=== PATIENT | male | born 2000 ===

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

== ENCOUNTER 2021-03-22 14:13 | Emergency (ER) | payer MEDICAID, SELFPAY ==
[2021-03-22 14:36] VITALS: BP 116/73; PULSE 81; RESP 18; TEMP 36.6; O2SAT 98; BMI 35.4
[2021-03-22 14:59] LABS: Glucose Urine UA NEG (NEG); Leukocyte Esterase Urine NEG (NEG); Nitrite Urine NEG (NEG); Specific Gravity - Urine >= 1.030 (1.005-1.025); Urine Blood NEG (NEG); Urine Ketones NEG (NEG); Urine Protein NEG (NEG-TRACE)
[2021-03-22 15:04] LABS: Appearance Urine CLEAR; Color Urine YELLOW
--- NOTE | 2021-03-22 15:52 | ED.BACK ---
HPI - Back Pain/Injury General Chief Complaint: Back Pain/Injury Stated Complaint: LOWER SIDE BACK PAIN Time Seen by Provider: 03/22/21 15:29 Source: patient Mode of arrival: ambulatory Limitations: no limitations History of Present Illness HPI Narrative: 20 y/o male with no significant medical history presents to the ER with 2 days of intermittent right lower back pain. The pain comes and goes and at times wraps to his right flank and upper hip. Worse with movement. Currently has no pain. He denies urinary symptoms, fever, chills, N/V/D. 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 Pain started when he was at work. No weakness, numbness, tingling, incontinence or difficulty ambulating. MD elicited complaint: back pain Onset (ago): day(s) (2) Timing: intermittent Similar Symptoms Previously: No Quality: aching Location: right lower back Radiation: other (right upper hip) Exacerbating factors: movement Relieving factors: none Context: unknown Associated symptoms: denies other symptoms Related Data Previous Rx's Medication Instructions Recorded cyclobenzaprine 10 mg PO TID PRN #8 tab 03/22/21 ibuprofen 800 mg PO Q8H PRN #20 tab 03/22/21 Allergies Allergy/AdvReac Type Severity Reaction Status Date / Time No Known Allergies Allergy Verified 03/22/21 14:35 Review of Systems Review of Systems: Constitutional: No Fever, No Chills Cardiovascular: No Chest Pain, No SOB Respiratory: No Cough, No Sputum Gastrointestinal: No Nausea, No Vomiting, No Diarrhea, No abdominal Pain Genitourinary: No Dysuria, No Urinary Frequency, No Hematuria Musculoskeletal: No joint pain, + Myalgias Skin: No Skin Lesions, No rash Neuro: No Weakness, No Numbness, No Dizziness, No Headache Heme/Lymph: No Bruising, No Lymphadenopathy Endocrine: No Polyuria, No Polydipsia PMFSH Social History Social History Advance Directives: No Advance Directives Information Provided: No Physical Exam Vital Signs: Vital Signs: Last Vital Signs Temp 97.9 F 03/22/21 14:36 Pulse 81 03/22/21 14:36 Resp 18 03/22/21 14:36 BP 116/73 03/22/21 14:36 Pulse Ox 98 03/22/21 14:36 Body Mass Index 35.4 Appearance: Alert. Oriented X3. No acute distress. Eyes: Pupils equal, round and reactive to light. ENT: Normal external inspection Neck: Normal inspection. Neck supple. CVS: Normal heart rate and rhythm. Pulses normal. Respiratory: No respiratory distress. Breath sounds normal. Abdomen: Soft and nontender. +BS x4. No CVA tenderness. Back: mild mid lumber tenderness on the right side. full spinal ROM with no discomfort. Skin: Skin warm and dry. Normal skin color. Normal skin turgor. No rashes. Extremities: No lower extremity edema. Atraumatic. Neuro: Oriented X 3. No motor deficit. No sensory deficit. Steady gait. Course Course Course Narrative: 20 y/o male presenting with intermittent right lower back pain. No urinary symptoms. No red flag symptoms of LBP. He is currently pain free. Suspect his main is MSK in nature given the nature of his occupation and being on his feet for so long. Doubt kidney stones given his clinical presentation and physical examination. Will treat with PRN NSAIDS, muscle relaxer and lidocerm. Patient is stable for d/c and agreeable with plan. MDM - Back Pain/Injury Lab Data Labs: Lab Results 03/22/21 Range/Units 14:47 Urine Color YELLOW Urine Appearance CLEAR Urine pH 6.0 (5.0-8.0) Ur Specific [place] >= 1.030 H (1.005-1.025) Urine Protein NEG (NEG-TRACE) MG/DL Urine Glucose (UA) NEG (NEG) MG/DL Urine Ketones NEG (NEG) MG/DL Urine Blood NEG (NEG) Urine Nitrite NEG (NEG) Ur Leukocyte Esterase NEG (NEG) Discharge Plan Discharge Clinical Impression: Strain of lumbar region Qualifiers: Encounter type: initial encounter Qualified Code(s): S39.012A - Strain of muscle, fascia and tendon of lower back, initial encounter Patient Disposition: Home, Self-Care Instructions: Low Back Strain (ED) Additional Instructions: Your urine test was normal. Your pain is likely muscular in nature. No bending, lifting or twisting. Use ice several times per day for 20 minutes at a time for the next 48 hours and then change to heat. Take medications as prescribed to help with pain and discomfort. Follow up with your Primary Care Doctor this week. If your pain worsens, if you develop new numbness, tingling, weakness, or urinary symptoms come back to the ER right away for evaluation. Prescriptions: New cyclobenzaprine 10 mg tablet 10 mg PO TID PRN (Reason: muscle spasm) Qty: 8 RF: 0 ibuprofen 800 mg tablet 800 mg PO Q8H PRN (Reason: pain) Qty: 20 RF: 0 Stand Alone Forms: Work/School Release
== END 2021-03-22 16:05 | disposition home or self-care (01) ==
PROVIDERS: Emergency Provider Emergency Medicine; PCP Pediatrics
DX: S39.012A Strain of muscle, fascia and tendon of lower back, initial encounter (principal); X50.1XXA Overexertion from prolonged static or awkward postures, initial encounter; Y93.9 Activity, unspecified; Y92.9 Unspecified place or not applicable; Y99.9 Unspecified external cause status
CPT/HCPCS: 81003; 99283

== ENCOUNTER 2021-08-09 16:02 | Emergency (ER) | payer MEDICAID, SELFPAY ==
--- NOTE | ~2021-08-09 | XR_ITS ---
EXAMINATION: XR HAND, LEFT CLINICAL INFORMATION: Finger pain COMPARISON: None TECHNIQUE: PA, lateral, and oblique views of the left hand. FINDINGS: The bones and soft tissues are normal. No fracture. Alignment is anatomic. Joint spaces are maintained. No erosions or soft tissue calcifications. XR/XR hand LT 2V IMPRESSION: Normal left hand.
[2021-08-09 17:14] VITALS: BP 142/76; PULSE 74; RESP 18; TEMP 36.9; O2SAT 99; BMI 34.4
--- NOTE | 2021-08-09 18:37 | ED_ITS ---
HPI - Extremity Problem General Chief complaint: Extremity Injury, Upper Stated complaint: hand inj Time Seen by Provider: 08/09/21 18:37 Source: patient Mode of arrival: ambulatory Limitations: no limitations History of Present Illness HPI Narrative: This is a 20-year-old male who presents to the emergency department with left pinky pain X2 days. He states yesterday he was playing basketball, when he jammed his finger against a ball. He states he immediately started getting pain. He wanted to come in today to see if he had abrupt finger. He states he has pain to his finger that was worse with movement better at rest. He also states he noted a bruise on the Avelar aspect of his hand that has been worsening since yesterday. He does not quantify severity of pain, however he states it is not too bad. He denies paresthesias, numbness, tingling, chest pain, shortness of breath. MD Complaint: extremity pain Onset (ago): day(s) (2) Pain Consistency: constant Location: left Severity scale (1-10): 5 Quality: constant Relieving factors: nothing Associated symptoms: denies other symptoms Related Data Previous Rx's Medication Instructions Recorded cyclobenzaprine 10 mg tablet 10 mg PO TID PRN #8 tab 03/22/21 ibuprofen 800 mg tablet 800 mg PO Q8H PRN #20 tab 03/22/21 acetaminophen 500 mg tablet 500 mg PO Q6H PRN #14 tab 08/09/21 (Tylenol Extra Strength) Allergies Allergy/AdvReac Type Severity Reaction Status Date / Time No Known Allergies Allergy Verified 03/22/21 14:35 Review of Systems Review of Systems: Constitutional : No Weight loss, No Fever, No Chills, No Night Sweats, No Fatigue, No Malaise ENT/Mouth : No Hearing loss, No Ear Pain, No Nasal Congestion, No Sinus Pain, No Hoarseness, No sore throat, No Rhinorrhea, No Swallowing Difficulty Eyes: No Eye Pain, No Swelling, No Redness, No Foreign Body, No Discharge, No Vision Changes Cardiovascular : No Chest Pain, No SOB, No Dyspnea on Exertion, No Orthopnea, No Edema, No Palpitations Respiratory : No Cough, No Sputum, No Wheezing, No Smoke Exposure, No Dyspnea Gastrointestinal : No Nausea, No Vomiting, No Diarrhea, No Constipation, No abdominal Pain, No Hematochezia, No Melena Genitourinary : no irregular bleeding, No Dysuria, No Urinary Frequency, No Hematuria, No Urinary Incontinence, No Urgency, No Flank Pain, No Urinary Flow Changes, No Hesitancy Musculoskeletal : + joint pain ( left sided pinky), No Myalgias, No Joint Swelling Skin : No Skin Lesions, No rash Neuro : No Weakness, No Numbness, No Paresthesias, No Loss of Consciousness, No Dizziness, No Headache Psych : No Anxiety/Panic, No Depression, No SI/HI/AH/VH, No Social Issues, Heme/Lymph: No Bruising, No Bleeding,No Lymphadenopathy Endocrine : No Polyuria, No Polydipsia, No Temperature Intolerance Yes all other systems are reviewed and are negative [facility] Past Medical History Attestation statement: The following information was validated with the patient. Medical History No known health problems Physical Exam Vital Signs: Vital Signs: Last Vital Signs Temp 98.4 F 08/09/21 17:14 Pulse 74 08/09/21 17:14 Resp 18 08/09/21 17:14 BP 142/76 H 08/09/21 17:14 Pulse Ox 99 08/09/21 17:14 Body Mass Index 34.4 vital signs have been reviewed as normal and appeared to be correct. Blood pressure normal. Heart rate normal. Respiration rate normal. Temperature normal. Oxygen saturation normal. Appearance: Alert. Oriented X3. No acute distress. Head: Normal external exam. Normocephalic. Eyes: PERRLA. EOMI. Conjunctiva and sclera normal. Eyelids normal. ENT: Pharynx normal. Uvula midline. Moist mucous membranes. Neck: Normal inspection. Neck supple. FROM. No adenopathy. No meningeal signs. CVS: Normal heart rate and rhythm. Heart sound normal. No murmurs noted. Pulses normal throughout. Respiratory: No respiratory distress. Painless inspiration. Breath sounds normal. No wheezes/rales/rhonchi noted. Chest nontender. No accessory muscle usage noted or decreased air movement noted. Back: Full range of motion noted. Skin: Skin warm and dry. Normal skin color. Normal skin turgor. No rashes/lesions/lacerations noted. Extremities: + tenderness to left lateral and medial aspect of pinky + full/p ainful range of motion to left pinky, no evident tendinous or ligamentous injuries, + good combat information center officer bilaterally no weakness , + eccymosis on the palmar aspect the left hand, no evidence of infections overlying the skin of left pinky. Neuro: Oriented X 3. No motor deficit. No sensory deficit. Reflexes normal. Normal steady gait. Course Course Course Narrative: This is a 20-year-old male who presents to the emergency department with right pinky pain x2 day has been worsening. He states yesterday at basketball practice, he jammed his finger into a ball. He states he immediately started having pain to his finger, specially with movement. Not moving his finger makes it better.e denies paresthesias, numbness, tingling, chest pain, shortness of breath. Upon physical examination he is having tenderness to palpation of the entire left pinky. He has full/painful range of motion. There is also Avelar ecchymosis noted. No evident tendon, or ligament involvement. No tenderness over the anatomical snuffbox. Good pulses 2+ and capilary refill to bilateral upper extremities Plan is to discharge the patient home with a finger splint to the left fifth digit, he should follow up with his PC in two days.. He should return to the emergency department with new or worsening symptoms. Reevaluation(s) Reevaluation #1: X-ray of the left hand shows now fractures. MDM - Extremity (Nontraumatic) Lab Data Attestation: I reviewed the patient's lab results. Imaging Data Left hand: Attestation: I personally reviewed and interpreted this imaging study as follows: Radiologist's impression: FINDINGS: The bones and soft tissues are normal. No fracture. Alignment is anatomic. Joint spaces are maintained. No erosions or soft tissue calcifications.? XR/XR hand LT 2V IMPRESSION: Normal left hand. Discharge Plan Discharge Clinical Impression: Finger sprain, Jammed finger (interphalangeal joint) Patient Disposition: Home, Self-Care Instructions: Jammed Finger (ED), Finger Sprain (ED) Additional Instructions: Follow-up with your PCP in 2 days Take Tylenol for pain as needed Avoid playing basketball for a few days. Wear finger splint as instructed Return to the emergency department with new or worsening symptoms. Prescriptions: New acetaminophen [Tylenol Extra Strength] 500 mg tablet 500 mg PO Q6H PRN (Reason: pain) Qty: 14 RF: 0 No Action cyclobenzaprine 10 mg tablet 10 mg PO TID PRN (Reason: muscle spasm) Qty: 8 RF: 0 ibuprofen 800 mg tablet 800 mg PO Q8H PRN (Reason: pain) Qty: 20 RF: 0 Referrals: Joy Dwyer MD [Primary Care Provider] - 2 days Stand Alone Forms: Work/School Release Print Language: Ukrainian
[2021-08-09] MEDS: Acetaminophen 325 MG TABLET 650 MG PO (19:14)
== END 2021-08-09 19:37 | disposition home or self-care (01) ==
LOC: HO.ED 19:01
PROVIDERS: Emergency Provider Emergency Medicine Emergency Medical Services; PCP Pediatrics
DX: S63.636A Sprain of interphalangeal joint of right little finger, initial encounter (principal); M79.641 Pain in right hand; Y29.XXXA Contact with blunt object, undetermined intent, initial encounter; Y93.9 Activity, unspecified; Y92.9 Unspecified place or not applicable; Y99.9 Unspecified external cause status
CPT/HCPCS: 29130; 73120; 99283; 99284

== ENCOUNTER 2022-09-11 16:34 | Emergency (ER) | payer MEDICAID, SELFPAY ==
--- NOTE | ~2022-09-11 | XR_ITS ---
EXAMINATION: XR HAND, RIGHT CLINICAL INFORMATION: Injury to thumb about one week ago COMPARISON: None TECHNIQUE: PA, lateral, and oblique views of the right hand. FINDINGS: The bones and soft tissues are normal. No fracture. Alignment is anatomic. Joint spaces are maintained. No erosions or soft tissue calcifications. XR/XR hand RT 2V IMPRESSION: Normal right hand.
[2022-09-11 17:02] VITALS: BP 110/67; PULSE 80; RESP 16; O2SAT 98; BMI 33.6
--- NOTE | 2022-09-11 17:49 | ED.EXTPRO ---
HPI - Extremity Problem General Chief complaint: Extremity Injury, Upper <Angelica Willis HUMPHREY Huerta - Last Filed: 09/11/22 18:44> Stated complaint: right hand thumb swollen and painful <Angelica Willis HUMPHREY Huerta - Last Filed: 09/11/22 18:44> Time Seen by Provider: 09/11/22 17:44 <Angelica Huerta CNP - Last Filed: 09/11/22 18:44> Source: patient <Angelica Willis HUMPHREY Huerta - Last Filed: 09/11/22 18:44> Mode of arrival: ambulatory <Angelica Willis HUMPHREY Huerta - Last Filed: 09/11/22 18:44> Limitations: no limitations <Angelica Willis HUMPHREY Huerta - Last Filed: 09/11/22 18:44> History of Present Illness HPI Narrative: Patient is a 21-year-old male, right hand dominant, who presents to the emergency department for evaluation of right thumb pain and swelling. Reports 1 week ago while playing basketball he hyperextended the thumb backwards. He continues to have pain localized to this area with swelling. Pain is made worse with movement of the thumb or with lifting of objects. Denies any numbness or tingling. Denies any cold sensation. He took ibuprofen a single dose at 1 point which did improve his pain therefore he is not taking any additional dosages. Did not apply ice or anything. Has not had any evaluation since the initial injury. Denies any past injury to this hand/thumb. <Angelica Albagee Huerta CNP - Last Filed: 09/11/22 18:44> Related Data Home medications: Previous Rx's Medication Instructions Recorded cyclobenzaprine 10 mg tablet 10 mg PO TID PRN muscle spasm #8 03/22/21 tabs ibuprofen 800 mg tablet 800 mg PO Q8H PRN pain #20 tabs 03/22/21 acetaminophen 500 mg tablet 500 mg PO Q6H PRN pain #14 tabs 08/09/21 (Tylenol Extra Strength) <Angelicamayank Huerta CNP - Last Filed: 09/11/22 18:44> Allergies/Adverse reactions: Allergies Allergy/AdvReac Type Severity Reaction Status Date / Time No Known Allergies Allergy Verified 03/22/21 14:35 <Angelica Huerta CNP - Last Filed: 09/11/22 18:44> Review of Systems Review of Systems: Musculoskeletal: Positive hand pain as noted in HPI <Angelica Huerta CNP - Last Filed: 09/11/22 18:44> Yes all other systems are reviewed and are negative <Angelica Huerta CNP - Last Filed: 09/11/22 18:44> PMFSH Past Medical History Attestation statement: The following information was validated with the patient. <Angelica Huerta CNP - Last Filed: 09/11/22 18:44> Source: old records reviewed <Angelica Huerta CNP - Last Filed: 09/11/22 18:44> Medical History: Medical History No known health problems <Angelica Huerta CNP - Last Filed: 09/11/22 18:44> Social History Social History: Social History Advance Directives: No Advance Directives Information Provided: No <Angelica Huerta CNP - Last Filed: 09/11/22 18:44> Physical Exam Vital Signs: Vital Signs: Last Vital Signs Temp 98.0 F 09/11/22 18:14 Pulse 80 09/11/22 17:02 Resp 18 09/11/22 17:53 BP 110/67 09/11/22 17:02 Pulse Ox 98 09/11/22 17:02 O2 Del Method 09/11/22 17:02 BMI result Body Mass Index 33.6 <Angelica Huerta CNP - Last Filed: 09/11/22 18:44> Vital Signs: Last Vital Signs Temp 98.0 F 09/11/22 18:14 Pulse 80 09/11/22 17:02 Resp 18 09/11/22 17:53 BP 110/67 09/11/22 17:02 Pulse Ox 98 09/11/22 17:02 O2 Del Method 09/11/22 17:02 BMI result Body Mass Index 33.6 <JULIETA Johns - Last Filed: 09/11/22 18:57> Appearance: Alert.?Oriented to person, place and time. No acute distress.?Normal affect. Eyes: Pupils equal, round and reactive to light.? ENT: Pharynx normal.?? Neck: Normal inspection.? Neck supple.?? CVS: Heart sounds normal. Normal heart rate and rhythm.? Pulses normal.?? Respiratory: No respiratory distress.? Lung sounds clear to auscultation bilaterally?? Abdomen: Soft and non-tender. Normoactive bowel sounds. Skin: Skin warm and dry.? Normal skin color.? Extremities: No lower extremity edema.? Right hand with palpable tenderness at the base of the thumb, resolving bruising, full AROM to the thumb no obvious deformity. Neuro: Moves all extremities spontaneously. Sensation intact bilaterally. No focal neuro deficits. Ambulates with normal steady gait. <Angelica Huerta CNP - Last Filed: 09/11/22 18:44> Course Course Course Narrative: Patient is a 21-year-old male with no significant past medical history presenting to the emergency department for evaluation of traumatic right hand/thumb pain. He is overall well-appearing. Vital signs are stable. Extremity is neurovascularly intact distally. There is mild localized swelling palpable tenderness upon examination without obvious deformity. Full range of motion to the thumb joint and wrist. Suspect likely soft tissue injury, however XR obtained to exclude fracture/ dislocation given duration of symptoms. Reviewed x-ray independently, no concern for acute fracture dislocation. Discussed plan of care for discharge home, alternating between Tylenol and ibuprofen as needed for pain, rest, avoidance of physical activities such as basketball until pain improves. Outpatient follow-up with primary care provider as needed. Reviewed worsening signs symptoms return back to emergency department for. All questions answered. Patient discharged home in stable condition. <Angelica Huerta CNP - Last Filed: 09/11/22 18:44> Reevaluation(s) Reevaluation #1: X-ray were normal. Stable for DC. <JULIETA Johns - Last Filed: 09/11/22 18:57> MDM - Extremity (Nontraumatic) Medical Records Attestation: I reviewed the patient's medical records. <Angelica Huerta CNP - Last Filed: 09/11/22 18:44> Lab Data Attestation: I reviewed the patient's lab results. <Angelica Huerta HUMPHREY - Last Filed: 09/11/22 18:44> Imaging Data XR hand: Attestation: I personally reviewed and interpreted this imaging study as follows: (No acute fracture or dislocation) <Angelica HuertaHUMPHREY - Last Filed: 09/11/22 18:44> Discharge Plan Discharge Clinical Impression: Sprain of right thumb <Angelica HuertaHUMPHREY - Last Filed: 09/11/22 18:44> Patient Disposition: Home, Self-Care <Angelica HuertaHUMPHREY - Last Filed: 09/11/22 18:44> Instructions: Finger Sprain (ED) <Angelica HuertaHUMPHREY - Last Filed: 09/11/22 18:44> Additional Instructions: X-ray does not show any evidence of a broken bone tear thumb. Be sure to rest, apply ice to the area as needed, avoid any heavy lifting or sports may make the pain worse until it is resolved. You can take ibuprofen 200 mg, 3 tablets (600mg) every 6-8 hours as needed for pain, in addition to Tylenol 500 mg, 2 tablets (1,000mg) every 4-6 hours as needed for pain, but not to exceed 3 doses daily (3,000mg). Follow-up with your primary care provider as needed. Return to the emergency department any new or worsening symptoms or concerns. ? <Angelica HuertaHUMPHREY - Last Filed: 09/11/22 18:44> Prescriptions: No Action cyclobenzaprine 10 mg tablet 10 mg PO TID PRN (Reason: muscle spasm) Qty: 8 0RF ibuprofen 800 mg tablet 800 mg PO Q8H PRN (Reason: pain) Qty: 20 0RF acetaminophen [Tylenol Extra Strength] 500 mg tablet 500 mg PO Q6H PRN (Reason: pain) Qty: 14 0RF <Angelica HuertaHUMPHREY - Last Filed: 09/11/22 18:44>
[2022-09-11 17:53] VITALS: RESP 18
[2022-09-11 18:14] VITALS: TEMP 36.7
[2022-09-11 19:02] VITALS: BP 125/79; PULSE 68; RESP 18; TEMP 36.9; O2SAT 97
--- NOTE | 2022-09-11 19:11 | PC.NURSE ---
pt pwd at time of discharge. mother at bedside. work note and discharge packet provided to pt. pot verbalized understanding of discharge plan
== END 2022-09-11 19:09 | disposition home or self-care (01) ==
PROVIDERS: Emergency Provider Emergency Medicine
DX: S63.601A Unspecified sprain of right thumb, initial encounter (principal); W21.05XA Struck by basketball, initial encounter; Y93.67 Activity, basketball; Y92.310 Basketball court as the place of occurrence of the external cause; Y99.9 Unspecified external cause status
CPT/HCPCS: 73120; 99283; 99284

== ENCOUNTER 2023-02-18 11:30 | Emergency (ER) | payer MEDICAID, SELFPAY ==
--- NOTE | ~2023-02-18 | XR_ITS ---
EXAMINATION: XR ANKLE, RIGHT CLINICAL INFORMATION: Pain after injury COMPARISON: Right ankle x-rays September 09, 2019 TECHNIQUE: AP, lateral, and mortise views of the right ankle. FINDINGS: Visualized portion of the distal right tibia and fibula demonstrate no fracture. Ankle mortise is maintained. No focal soft tissue swelling of the right ankle. No gross ankle joint effusion. XR/XR ankle RT min 3V IMPRESSION: Unremarkable radiographs of the right ankle.
[2023-02-18 11:40] VITALS: BP 129/78; PULSE 73; RESP 18; TEMP 36.5; O2SAT 98; BMI 35.2
--- NOTE | 2023-02-18 11:44 | ED_ITS ---
HPI - Extremity Injury (Lower) General Chief Complaint: Extremity Injury, Lower Stated Complaint: R foot injury Time Seen by Provider: 02/18/23 11:32 Source: patient Mode of arrival: ambulatory Limitations: no limitations History of Present Illness HPI Narrative: 22 yo male presents to the ER for evaluation of right ankle pain after he injured it while playing basketball yesterday. He states he twisted it after l anding his foot on a small play ball. He has been able to ambulate on it but with some pain. He noticed some swelling to the outside of his right ankle. No foot pain. No numbness, tingling. No other injuries. MD complaint: ankle injury Onset (ago): day(s) (1) Injury: Right: ankle Type of Injury: inversion Place: street/outdoors Severity scale (1-10): 5 Relieving factors: immobilization and rest Exacerbating factors: weight bearing, movement and palpation Context: fall and jumping Associated symptoms: ambulatory Other symptoms: none Related Data Previous Rx's Medication Instructions Recorded cyclobenzaprine 10 mg tablet 10 mg PO TID PRN muscle spasm #8 03/22/21 tabs ibuprofen 800 mg tablet 800 mg PO Q8H PRN pain #20 tabs 03/22/21 acetaminophen 500 mg tablet 500 mg PO Q6H PRN pain #14 tabs 08/09/21 (Tylenol Extra Strength) Allergies Allergy/AdvReac Type Severity Reaction Status Date / Time No Known Allergies Allergy Verified 03/22/21 14:35 Review of Systems Review of Systems: Yes all other systems are reviewed and are negative [facility] Past Medical History Medical History No known health problems Social History Social History Alcohol intake: never Patient Tobacco Use Status: Never used Tobacco Advance Directives: No Advance Directives Information Provided: No Physical Exam Vital Signs: Vital Signs: Last Vital Signs Temp 97.7 F 02/18/23 11:40 Pulse 73 02/18/23 11:40 Resp 18 02/18/23 11:40 BP 129/78 02/18/23 11:40 Pulse Ox 98 02/18/23 11:40 O2 Del Method Room Air 02/18/23 11:40 BMI result Body Mass Index 35.2 Appearance: Alert. Oriented X3. No acute distress. HEENT: normal inspection CVS: Normal heart rate and rhythm. Pulses normal. Respiratory: No respiratory distress. Skin: Skin warm and dry. Normal skin color. Normal skin turgor. No rashes. Extremities: right ankle with mild swelling laterally, no ecchymosis, tenderness over the lateral malleolus. normal ROM of the ankle and foot. foot is warm and well perfused. Neuro: Oriented X 3. No motor deficit. No sensory deficit. Steady gait Medical Decision Making Medical Decision Making MDM Narrative: 22-year-old male presents to the ER for evaluation of right ankle pain and swelling after a inversion basketball injury yesterday. He is ambulatory. Minimal swelling and tenderness on examination. An x-ray is unremarkable. Will treat for ankle sprain/ strain. Liu wrap applied. Discussed RICE. Stable for d/c home. Differential Diagnosis Differential Diagnoses: The differential diagnosis associated with the presentation includes Ankle sprain, ankle strain, contusion, broken foot, broken ankle Independent Interpretation I performed an independent interpretation of an: Plain X-Ray Interpretation: normal appearing right ankle Radiology Impression Discussion of test interpretation with radiology: I have reviewed the radiologist's reading. Radiologist Impression: EXAMINATION: XR ANKLE, RIGHT CLINICAL INFORMATION: Pain after injury? COMPARISON: Right ankle x-rays September 09, 2019? TECHNIQUE: AP, lateral, and mortise views of the right ankle. FINDINGS: Visualized portion of the distal right tibia and fibula demonstrate no fracture. Ankle mortise is maintained. No focal soft tissue swelling of the right ankle. No gross ankle joint effusion.? XR/XR ankle RT min 3V IMPRESSION: Unremarkable radiographs of the right ankle. External Record Review External record reviewed: Outpatient record and Prior outpatient radiology Prescription Management I considered prescription management with: Pain Medication Discharge Plan Discharge Clinical Impression: Ankle sprain and strain Patient Disposition: Home, Self-Care Instructions: Ankle Sprain (DC) Additional Instructions: Your x-ray today was normal. Rest your ankle and elevate your foot when possible. Recommend LIU wrap for support and compression. Use ice several times per day for the next 48 hours. You may bear weight as tolerated. Take Motrin and/or Tylenol as needed for pain. Follow up with your doctor as needed. Prescriptions: No Action cyclobenzaprine 10 mg tablet 10 mg PO TID PRN (Reason: muscle spasm) Qty: 8 0RF ibuprofen 800 mg tablet 800 mg PO Q8H PRN (Reason: pain) Qty: 20 0RF acetaminophen [Tylenol Extra Strength] 500 mg tablet 500 mg PO Q6H PRN (Reason: pain) Qty: 14 0RF Stand Alone Forms: Work/School Release
[2023-02-18] MEDS: Ibuprofen 600 MG TABLET PO (12:54)
== END 2023-02-18 12:55 | disposition home or self-care (01) ==
PROVIDERS: Emergency Provider Emergency Medicine
DX: S93.401A Sprain of unspecified ligament of right ankle, initial encounter (principal); X50.1XXA Overexertion from prolonged static or awkward postures, initial encounter; Y93.67 Activity, basketball; Y92.310 Basketball court as the place of occurrence of the external cause; Y99.9 Unspecified external cause status
CPT/HCPCS: 73610; 99283

== ENCOUNTER 2023-02-20 16:05 | Emergency (ER) | payer MEDICAID, SELFPAY ==
--- NOTE | ~2023-02-20 | CT_ITS ---
EXAMINATION: CT ABDOMEN AND PELVIS WITHOUT CONTRAST CLINICAL INFORMATION: Bilateral flank pain COMPARISON: CT abdomen pelvis 11/28/2018 TECHNIQUE: Multidetector volumetric imaging was performed from the superior aspect of the liver through the pubic symphysis. Sagittal and coronal reformatted images were obtained on the technologist's workstation. This CT examination was performed using dose optimization techniques as appropriate, variously including the following: *Automated exposure control *Adjustment of mA and/or kV according to patient size (this includes techniques or standardized protocols for targeted exams where dose is matched to indication/reason for exam; i.e. extremities or head) *Use of iterative reconstruction technique DLP: 668 mGy-cm FINDINGS: LUNG BASES: The visualized lung bases are unremarkable. LIVER, GALLBLADDER, AND BILIARY TREE: The liver is normal in size, shape, and attenuation. No focal hepatic lesion or biliary ductal dilatation is present. The gallbladder is unremarkable with no evidence of radiopaque gallstones, gallbladder wall thickening, or obvious pericholecystic inflammatory changes. PANCREAS: Unremarkable. SPLEEN: Unremarkable. ADRENAL GLANDS: Unremarkable. KIDNEYS AND URETERS: The kidneys are normal in size, shape, and attenuation. No hydronephrosis, hydroureter, or calculi seen. No perinephric stranding. BLADDER: Unremarkable. GASTROINTESTINAL TRACT: The small and large bowel are unremarkable. The appendix is unremarkable. ABDOMINAL WALL: No significant hernia is appreciated. LYMPH NODES: Normal. VASCULAR: Unremarkable. PELVIC VISCERA: Unremarkable. OSSEOUS STRUCTURES: Unremarkable. CT/CT abdomen pelvis wo IV con IMPRESSION: No significant abnormality. Fleischner guidelines were followed.
--- NOTE | 2023-02-20 17:15 | ED_ITS ---
HPI - General Adult General Chief complaint: Abdominal Pain <JULIETA Figueroa - Last Filed: 02/20/23 17:30> Stated complaint: Lower abd pain/back pain <JULIETA Figueroa - Last Filed: 02/20/23 17:30> Time Seen by Provider: 02/20/23 22:48 <JULIETA Figueroa - Last Filed: 02/20/23 17:30> Source: patient <Emma Landeros MD - Last Filed: 02/20/23 23:16> Mode of arrival: ambulatory <Emma Landeros MD - Last Filed: 02/20/23 23:16> History of Present Illness HPI narrative: This is a 22-year-old male without significant past medical history who presents with bilateral lower back pain without associated fever, chills, nausea, vomiting, bowel or bladder dysfunction, urinary symptoms. Patient states that he does a lot of pushing, pulling and lifting at his job. He denies any lower extremity numbness/tingling/weakness. <Emma Landeros MD - Last Filed: 02/20/23 23:16> Related Data Home medications: Previous Rx's Medication Instructions Recorded cyclobenzaprine 10 mg tablet 10 mg PO TID PRN muscle spasm #8 03/22/21 tabs ibuprofen 800 mg tablet 800 mg PO Q8H PRN pain #20 tabs 03/22/21 acetaminophen 500 mg tablet 500 mg PO Q6H PRN pain #14 tabs 08/09/21 (Tylenol Extra Strength) <JULIETA Figueroa - Last Filed: 02/20/23 17:30> Allergies/adverse reactions: Allergies Allergy/AdvReac Type Severity Reaction Status Date / Time No Known Allergies Allergy Verified 02/20/23 17:14 <JULIETA Figueroa - Last Filed: 02/20/23 17:30> Review of Systems Review of Systems: Pertinent positives and negatives as stated in HPI <Emma Landeros MD - Last Filed: 02/20/23 23:16> PMFSH Past Medical History Source: nursing notes reviewed <Emma Landeros MD - Last Filed: 02/20/23 23:16> Medical History: Medical History No known health problems <JULIETA Figueroa - Last Filed: 02/20/23 17:30> Social History Social History: Social History Alcohol intake: never Patient Tobacco Use Status: Never used Tobacco Advance Directives: No Advance Directives Information Provided: No <JULIETA Figueroa - Last Filed: 02/20/23 17:30> Physical Exam ED Vital Signs: Vital Signs - 24 hr 02/20/23 17:16 02/20/23 22:00 Temperature 98.1 F 97.1 F Pulse Rate 91 64 Respiratory Rate 18 16 Blood Pressure 127/87 118/81 Pulse Oximetry 100 98 Oxygen Delivery Method Room Air Room Air BMI result Body Mass Index 36.0 <JULIETA Figueroa - Last Filed: 02/20/23 17:30> Vital Signs - 24 hr 02/20/23 17:16 02/20/23 22:00 Temperature 98.1 F 97.1 F Pulse Rate 91 64 Respiratory Rate 18 16 Blood Pressure 127/87 118/81 Pulse Oximetry 100 98 Oxygen Delivery Method Room Air Room Air BMI result Body Mass Index 36.0 VITAL SIGNS: Reviewed. GENERAL: Well developed, well nourished, in no acute distress. HEAD: Normocephalic/atraumatic EYES: PERRLA, EOMI LUNGS: Normal breath sounds. No adventitious sounds or accessory muscle use. SpO2<98> CARDIOVASCULAR: Regular rate and rhythm without noted murmurs ABDOMEN: Soft, non-tender, non-distended with bowel sounds. BACK: No midline vertebral tenderness or step-offs noted, no erythema/induration. MUSCULOSKELETAL: No tenderness, deformities, or effusions noted on gross inspection. EXTREMITIES: No cyanosis, clubbing or edema. SKIN: Inspection of the skin reveals no rashes NEUROLOGIC: Alert and oriented x 4. Strength and sensation to light touch were grossly intact x 4. <Emma Landeros MD - Last Filed: 02/20/23 23:16> Course Course Course Narrative: This is an RME: Additional HPI, ROS, PE not included below will be deferred to primary provider. 22-year-old male no significant medical history presents with Intermittent stabbing bilateral flank pain with radiation to abdomen, patient reports urinary frequency and urgency as well. Patient denies fevers, chills, chest pain, shortness of breath, nausea, vomiting, headache, vision changes in dizziness. Physical exam patient well-appearing vital signs stable. Full exam will be deferred to primary provider. Plan labs, urine, imaging. <JULIETA Figueroa - Last Filed: 02/20/23 17:30> Medical Decision Making Medical Decision Making MDM Narrative: 22-year-old male with history and clinical presentation after reviewing all investigations my interpretation is that this patient has acute on chronic back pain without red flag symptoms. He is otherwise discharged home in stable condition after receiving combination analgesics and lidocaine patch. <Emma Landeros MD - Last Filed: 02/20/23 23:16> Differential Diagnosis Please see the discussion above <Emma Landeros MD - Last Filed: 02/20/23 23:16> Lab Data Please see the discussion above <Emma Landeros MD - Last Filed: 02/20/23 23:16> Result Diagrams: 02/20/23 17:28 02/20/23 17:28 <JULIETA Figueroa - Last Filed: 02/20/23 17:30> Labs: Lab Results 02/20/23 02/20/23 02/20/23 Range/Units 17:28 17:28 17:35 WBC 7.7 (4.8-10.8) X10*3/uL RBC 5.42 (4.60-5.80) X10*6/uL Hgb 15.7 (14.0-18.0) g/dl Hct 45.7 (42.0-52.0) % MCV 84.3 (80.0-98.0) fL MCH 29.0 (27.0-33.0) pg MCHC 34.4 (31.0-36.0) g/dl RDW 13.0 (11.0-16.0) % Plt Count 257 (160-400) X10*3/uL MPV 10.5 (9.4-12.4) fL Immature Gran % (Auto) 0.1 (0.0-0.4) % Neut % (Auto) 61.0 (45-73) % Lymph % (Auto) 23.9 (20-40) % [place] % (Auto) 13.6 H (2-11) % Eos % (Auto) 0.8 (0-4) % Baso % (Auto) 0.6 (0-2) % Lymph # (Auto) 1.8 (1.2-4.9) X10*3/uL [place] # (Auto) 1.1 (0.1-1.2) X10*3/uL Eos # (Auto) 0.1 (0.0-0.4) X10*3/uL Baso # (Auto) 0.1 (0.0-0.2) X10*3/uL Abs Immat Gran (auto) 0.01 (0.00-0.03) X10*3/uL Absolute Neuts (auto) 4.7 (2.0-8.3) x10*3/uL Absolute Nucleated RBC 0.000 (0.0-0.012) X10*3/uL Nucleated RBC % (auto) 0.0 (0.0-0.2) /100WBC Sodium 142 (135-145) mmol/L Potassium 4.3 (3.3-5.1) mmol/L Chloride 104 (96-108) mmol/L Carbon Dioxide 29 (22-29) mmol/L Anion Gap 13 (12-20) BUN 16 (9-16) mg/dL Creatinine 0.94 (0.5-1.4) mg/dL Estim Creat Clear Calc 143.1 Estimated GFR > 60 Random Glucose 94 (60-115) mg/dL Calcium 9.9 (8.4-10.2) mg/dL Magnesium 2.1 (1.6-2.6) mg/dL Total Bilirubin 0.6 (0.0-1.0) mg/dL AST 22 (5-37) U/L ALT 17 (0-40) U/L Alkaline Phosphatase 84 (39-117) U/L Total Protein 7.7 (6.5-8.0) g/dL Albumin 4.5 (3.5-5.0) g/dL Lipase 25 (8-78) U/L Urine Color Yellow Urine Appearance Clear Urine pH 6.5 (5.0-9.0) Ur Specific [place] 1.015 (1.005-1.025) Urine Protein Negative (Neg-Trace) mg/dL Urine Glucose (UA) Negative (Negative) mg/dL Urine Ketones Negative (Negative) mg/dL Urine Blood Negative (Negative) Urine Nitrite Negative (Negative) Ur Leukocyte Esterase Negative (Negative) <JULIETA Figueroa - Last Filed: 02/20/23 17:30> Lab Results 02/20/23 02/20/23 02/20/23 Range/Units 17:28 17:28 17:35 WBC 7.7 (4.8-10.8) X10*3/uL RBC 5.42 (4.60-5.80) X10*6/uL Hgb 15.7 (14.0-18.0) g/dl Hct 45.7 (42.0-52.0) % MCV 84.3 (80.0-98.0) fL MCH 29.0 (27.0-33.0) pg MCHC 34.4 (31.0-36.0) g/dl RDW 13.0 (11.0-16.0) % Plt Count 257 (160-400) X10*3/uL MPV 10.5 (9.4-12.4) fL Immature Gran % (Auto) 0.1 (0.0-0.4) % Neut % (Auto) 61.0 (45-73) % Lymph % (Auto) 23.9 (20-40) % [place] % (Auto) 13.6 H (2-11) % Eos % (Auto) 0.8 (0-4) % Baso % (Auto) 0.6 (0-2) % Lymph # (Auto) 1.8 (1.2-4.9) X10*3/uL [place] # (Auto) 1.1 (0.1-1.2) X10*3/uL Eos # (Auto) 0.1 (0.0-0.4) X10*3/uL Baso # (Auto) 0.1 (0.0-0.2) X10*3/uL Abs Immat Gran (auto) 0.01 (0.00-0.03) X10*3/uL Absolute Neuts (auto) 4.7 (2.0-8.3) x10*3/uL Absolute Nucleated RBC 0.000 (0.0-0.012) X10*3/uL Nucleated RBC % (auto) 0.0 (0.0-0.2) /100WBC Sodium 142 (135-145) mmol/L Potassium 4.3 (3.3-5.1) mmol/L Chloride 104 (96-108) mmol/L Carbon Dioxide 29 (22-29) mmol/L Anion Gap 13 (12-20) BUN 16 (9-16) mg/dL Creatinine 0.94 (0.5-1.4) mg/dL Estim Creat Clear Calc 143.1 Estimated GFR > 60 Random Glucose 94 (60-115) mg/dL Calcium 9.9 (8.4-10.2) mg/dL Magnesium 2.1 (1.6-2.6) mg/dL Total Bilirubin 0.6 (0.0-1.0) mg/dL AST 22 (5-37) U/L ALT 17 (0-40) U/L Alkaline Phosphatase 84 (39-117) U/L Total Protein 7.7 (6.5-8.0) g/dL Albumin 4.5 (3.5-5.0) g/dL Lipase 25 (8-78) U/L Urine Color Yellow Urine Appearance Clear Urine pH 6.5 (5.0-9.0) Ur Specific [place] 1.015 (1.005-1.025) Urine Protein Negative (Neg-Trace) mg/dL Urine Glucose (UA) Negative (Negative) mg/dL Urine Ketones Negative (Negative) mg/dL Urine Blood Negative (Negative) Urine Nitrite Negative (Negative) Ur Leukocyte Esterase Negative (Negative) <Emma Landeros MD - Last Filed: 02/20/23 23:16> Radiology Impression Radiologist Impression: My interpretation is in agreement with radiology's impression of the imaging studies. <Emma Landeros MD - Last Filed: 02/20/23 23:16> External Record Review External record reviewed: Prior outpatient labs <Emma Landeros MD - Last Filed: 02/20/23 23:16> Discharge Plan Discharge Clinical Impression: Acute exacerbation of chronic low back pain, Muscle strain <JULIETA Figueroa - Last Filed: 02/20/23 17:30> Patient Disposition: Home, Self-Care <JULIETA Figueroa - Last Filed: 02/20/23 17:30> Instructions: Muscle Strain (ED), Back Pain (ED), Lower Back Exercises (ED) <JULIETA Figueroa - Last Filed: 02/20/23 17:30> Additional Instructions: 1. Tylenol 1000 mg, orally, every 6 hours as needed for pain control. Do not exceed 4000 mg within 24 hours. 2. Ibuprofen 400 mg, orally with milk or food, every 6 hours as needed for pain control. I recommend that you take this with Tylenol for improved symptom relief. 3. Lidocaine patch, apply to area of maximal tenderness as directed on the outside packaging. 4. Follow-up with primary care provider in the next 1-2 days for re-evaluation further outpatient management. Return to the ER for any worsening symptoms. <JULIETA Figueroa - Last Filed: 02/20/23 17:30> Prescriptions: No Action cyclobenzaprine 10 mg tablet 10 mg PO TID PRN (Reason: muscle spasm) Qty: 8 0RF ibuprofen 800 mg tablet 800 mg PO Q8H PRN (Reason: pain) Qty: 20 0RF acetaminophen [Tylenol Extra Strength] 500 mg tablet 500 mg PO Q6H PRN (Reason: pain) Qty: 14 0RF <JULIETA Figueroa - Last Filed: 02/20/23 17:30> Referrals: [facility] [Primary Care Provider] - <JULIETA Figueroa - Last Filed: 02/20/23 17:30>
[2023-02-20 17:16] VITALS: BP 127/87; PULSE 91; RESP 18; TEMP 36.7; O2SAT 100; BMI 36.0
[2023-02-20 17:35] LABS: MANUAL DIFF FLAG NO
[2023-02-20 17:36] LABS: Basophils Absolute Auto 0.1 X10*3/uL (0.0-0.2); Basophils Percent Auto 0.6 % (0-2); Eosinophils Absolute Auto 0.1 X10*3/uL (0.0-0.4); Eosinophils Percent Auto 0.8 % (0-4); Hematocrit 45.7 % (42.0-52.0); Hemoglobin 15.7 g/dl (14.0-18.0); Imm Gran Abs Auto 0.01 X10*3/uL (0.00-0.03); Imm Gran Pct Auto 0.1 % (0.0-0.4); Lymphocytes Absolute Auto 1.8 X10*3/uL (1.2-4.9); Lymphocytes Percent Auto 23.9 % (20-40); Mean Corpuscular HGB Conc 34.4 g/dl (31.0-36.0); Mean Corpuscular Volume 84.3 fL (80.0-98.0); Mean Platelet Volume 10.5 fL (9.4-12.4); Monocytes Absolute Auto 1.1 X10*3/uL (0.1-1.2); Monocytes Percent Auto 13.6 % (2-11); Neutrophils Absolute Auto 4.7 x10*3/uL (2.0-8.3); Platelet Count 257 X10*3/uL (160-400); Red Blood Count 5.42 X10*6/uL (4.60-5.80); White Blood Count 7.7 X10*3/uL (4.8-10.8)
[2023-02-20 17:52] LABS: Appearance Urine Clear; Color Urine Yellow; Glucose Urine UA Negative (Negative); Leukocyte Esterase Urine Negative (Negative); Nitrite Urine Negative (Negative); PH 6.5 (5.0-9.0); Specific Gravity - Urine 1.015 (1.005-1.025); Urine Blood Negative (Negative); Urine Ketones Negative (Negative); Urine Protein Negative (Neg-Trace)
[2023-02-20 18:02] LABS: Alanine Aminotransferase 17 U/L (0-40); Albumin Level 4.5 g/dL (3.5-5.0); Alkaline Phosphatase 84 U/L (39-117); Anion Gap 13 (12-20); Aspartate Amino Transferase 22 U/L (5-37); Bilirubin Total 0.6 mg/dL (0.0-1.0); Blood Urea Nitrogen 16 mg/dL (9-16); Calcium 9.9 mg/dL (8.4-10.2); Carbon Dioxide 29 mmol/L (22-29); Chloride 104 mmol/L (96-108); Creatinine Clr Calc Pharmacy 143.1; Estimated Glomerular Filt Rate > 60; Glucose Random 94 mg/dL (60-115); Lipase 25 U/L (8-78); Magnesium 2.1 mg/dL (1.6-2.6); Potassium 4.3 mmol/L (3.3-5.1); Sodium 142 mmol/L (135-145); Total Protein 7.7 g/dL (6.5-8.0)
[2023-02-20 22:00] VITALS: BP 118/81; PULSE 64; RESP 16; TEMP 36.2; O2SAT 98
[2023-02-20] MEDS: Lidocaine 4 % Patch ADH..PATCH 1 PATCH TRANSDERMA (23:30)
[2023-02-20] MEDS: Acetaminophen 325 MG TABLET 975 MG PO (23:31)
[2023-02-20] MEDS: Ibuprofen 400 MG TABLET PO (23:31)
--- NOTE | 2023-02-20 23:38 | PC.NURSE ---
Took over care at 11:15pm, pt denies any sob or chest pain, medicated per Mar for back pain at discharge. Pt able to ambulate with a steady no sign of distress.
== END 2023-02-20 23:42 | disposition home or self-care (01) ==
PROVIDERS: Physician Assistant; Emergency Provider Student in an Organized Health Care Education/Training Program
DX: M54.50 Low back pain, unspecified (principal); G89.29 Other chronic pain; S39.012A Strain of muscle, fascia and tendon of lower back, initial encounter; X50.0XXA Overexertion from strenuous movement or load, initial encounter; Y93.89 Activity, other specified; Y92.59 Other trade areas as the place of occurrence of the external cause; Y99.0 Civilian activity done for income or pay
CPT/HCPCS: 36415; 74176; 80053; 81003; 83690; 83735; 85025; 99284

== ENCOUNTER 2023-08-13 08:41 | Emergency (ER) | payer MEDICAID, SELFPAY ==
--- NOTE | ~2023-08-13 | XR_ITS ---
EXAMINATION: XR HAND, LEFT CLINICAL INFORMATION: Left thumb injury. COMPARISON: Radiograph left hand 08/09/2021. TECHNIQUE: PA, lateral, and oblique views of the left hand. FINDINGS: The bones and soft tissues are normal. No fracture. Alignment is anatomic. Joint spaces are maintained. No erosions or soft tissue calcifications. XR/XR hand LT 2V IMPRESSION: Normal left hand.
[2023-08-13 09:12] VITALS: BP 130/78; PULSE 70; RESP 16; TEMP 36.6; O2SAT 100; BMI 33.7
--- NOTE | 2023-08-13 10:04 | ED.EXTPRO ---
HPI - Extremity Problem General Chief complaint: Extremity Injury, Upper Stated complaint: l thumb inj Time Seen by Provider: 08/13/23 09:25 Source: patient Mode of arrival: ambulatory Limitations: no limitations History of Present Illness HPI Narrative: 22-year-old male presents to ED for possible left thumb sprain. Patient states a week ago he was playing basketball while swiping for ball he probably jammed or pulled his thumb the wrong way. Patient able to move thumb in all directions but with pain. Patient denies any numbness/ tingling. Patient denies any other trauma. Related Data Previous Rx's Medication Instructions Recorded cyclobenzaprine 10 mg tablet 10 mg PO TID PRN muscle spasm #8 03/22/21 tabs ibuprofen 800 mg tablet 800 mg PO Q8H PRN pain #20 tabs 03/22/21 acetaminophen 500 mg tablet 500 mg PO Q6H PRN pain #14 tabs 08/09/21 (Tylenol Extra Strength) naproxen 500 mg tablet 500 mg PO BID PRN pain 7 days #14 08/13/23 tabs Allergies Allergy/AdvReac Type Severity Reaction Status Date / Time No Known Allergies Allergy Verified 02/20/23 17:14 Review of Systems Review of Systems: Left thumb pain Yes all other systems are reviewed and are negative [facility] Past Medical History Medical History No known health problems Social History Social History Alcohol intake: never Patient Tobacco Use Status: Never used Tobacco Smoked in Last 30 Days: No Use of substances other than those prescribed or required for medical reasons: No Advance Directives: No Physical Exam Vital Signs: Vital Signs: Last Vital Signs Temp 97.9 F 08/13/23 09:12 Pulse 70 08/13/23 09:12 Resp 16 08/13/23 09:12 BP 130/78 08/13/23 09:12 Pulse Ox 100 08/13/23 09:12 O2 Del Method Room Air 08/13/23 09:12 BMI result Body Mass Index 33.7 Const: General: cooperative, healthy appearing, comfortable, no acute distress, well developed, alert, awake and Physically active Orientation/consciousness: oriented to person, oriented to place, oriented to time and patient oriented x3 HEENT: Head: Yes normal to inspection, Yes No palpable skull fracture present, Yes normocephalic and Yes atraumatic Eyes: General: appearance normal, both eyes and all related structures Neck: Neck: Yes normal visual inspection, Yes full ROM, Yes no lymphadenopathy, Yes no meningeal signs, Yes trachea midline, Yes supple, No anterior neck swelling and No tender Chest: Chest palpation & inspection: normal inspection of the chest and normal palpation of entire chest wall Resp: Effort & Inspection: normal respiratory effort and able to speak in complete sentences Auscultation: clear to auscultation bilaterally Cardio: Jugular venous distension: no JVD Heart sounds: S1 normal heart sound present and S2 normal heart sound present GI: Inspection: Yes normal to inspection and No abdominal wall ecchymosis Palpation (GI): Soft to palpation, not firm, nontender, no guarding and not rigid : General: No CVA tenderness and Yes no CVA tenderness Back/Spine/Pelvis: Back: no CVA tenderness, No CVA tenderness and No back tenderness Skin: General skin exam: no rashes or lesions noted, elasticity normal and turgor normal Neuro: General: oriented to person, oriented to place, oriented to time, patient oriented x3, gait normal, tone normal, moves all extremities, Normal light touch and pain sensation, no meningeal signs, no focal motor deficits, CN's II-XI intact bilaterally and normal sensation to monofilament Extrem: General: Yes normal to inspection, Yes full ROM and Yes capillary refill normal Hand/finger images: 1. slight tenderness on palpation. Negative for erythema, ecchymosis, crepitus, or deformity. Range of motion intact but with pain. Capillary refills intact. Rest of extremity normal. Whole extremity motor/ neuro/vascular exam intact Psych: Appearance: grossly normal, well kempt and not disheveled Medical Decision Making Medical Decision Making MDM Narrative: 22-year-old male presents to the ED for left thumb pain. Left thumb pain caused by injury playing basketball a week ago. Patient has complete range of motion of thumb but with pain. Negative for signs of any neurovascular injury. X-ray came back normal negative for fracture. Patient informed to follow-up with primary care provider to rule out any tendon ligament injury by MRI. Patient discharged with pain medication. negative snuff box tenderness. Patient placed in Liu wrap Differential Diagnosis Differential Diagnoses: The differential diagnosis associated with the presentation includes ( thumb sprain) Independent Interpretation I performed an independent interpretation of an: Plain X-Ray Radiology Impression Discussion of test interpretation with radiology: I have reviewed the radiologist's reading. External Record Review External record reviewed: Other (prior ED visit) Prescription Management I considered prescription management with: Pain Medication Discharge Plan Discharge Clinical Impression: Sprain of hand, thumb, left Patient Disposition: Home, Self-Care Instructions: Finger Sprain (ED) Additional Instructions: you will need to follow-up with your primary care provider for possible MRI to rule out any ligamentous/tendon injury to her thumb. Return to the ED immediately for inability to move thumb, swelling, bluish black discoloration, redness, fever, chills, or any other concerning symptoms. Recommend rest, elevation, and ice of thumb. Prescriptions: New naproxen 500 mg tablet 500 mg PO BID PRN (Reason: pain) 7 Days Qty: 14 0RF No Action cyclobenzaprine 10 mg tablet 10 mg PO TID PRN (Reason: muscle spasm) Qty: 8 0RF ibuprofen 800 mg tablet 800 mg PO Q8H PRN (Reason: pain) Qty: 20 0RF acetaminophen [Tylenol Extra Strength] 500 mg tablet 500 mg PO Q6H PRN (Reason: pain) Qty: 14 0RF Stand Alone Forms: Work/School Release Interventions: ED Discharge Assessment Last Done: 08/13/23 10:40 Discharge Date/Time: 08/13/23 10:41 Print Language: Austrian
== END 2023-08-13 10:41 | disposition home or self-care (01) ==
PROVIDERS: Emergency Provider Emergency Medicine
DX: S63.602A Unspecified sprain of left thumb, initial encounter (principal); X50.9XXA Other and unspecified overexertion or strenuous movements or postures, initial encounter; Y93.67 Activity, basketball; Y92.310 Basketball court as the place of occurrence of the external cause; Y99.9 Unspecified external cause status
CPT/HCPCS: 73120; 99283; 99284